=== PATIENT | female | born 1975 | race African-American/Black ===

== ENCOUNTER 2018-01-15 06:52 | Emergency (ER) | payer MEDICARE, MEDICAID ==
--- NOTE | 2018-01-15 07:01 | ER Document Report ---
ED General - General Chief Complaint: Shortness Of Breath Stated Complaint: DIFFICULTY BREATHING Time Seen by Provider: 01/15/18 07:01 TRAVEL OUTSIDE OF THE U.S. IN LAST 30 DAYS: No - HPI Patient complains to provider of: SOB, orthopnia Notes: Dialysis patient presents with increasing work of breathing shortness of breath and orthopnea. Patient states she is new to the area moved here from [facility]. Scheduled to get dialysis Friday and Friday. She was feeling "okay after her dialysis Friday night began to experience orthopnea. She is is gotten worse and worse. Patient is scheduled for dialysis today at 12:30 PM. Patient denies fever, chills, nausea, vomiting, diaphoresis. - Related Data Allergies/Adverse Reactions: acetaminophen Allergy (Verified 01/15/18 06:59) aspirin Allergy (Verified 01/15/18 06:59) clonidine Allergy (Verified 01/15/18 06:59) codeine Allergy (Verified 01/15/18 06:59) doxycycline Allergy (Verified 01/15/18 06:59) fentanyl Allergy (Verified 01/15/18 06:59) hydrocodone Allergy (Verified 01/15/18 06:59) iodine Allergy (Verified 01/15/18 06:59) lisinopril Allergy (Verified 01/15/18 06:59) oxycodone Allergy (Verified 01/15/18 06:59) peanut Allergy (Verified 01/15/18 06:59) vancomycin Allergy (Verified 01/15/18 06:59) paper tape Allergy (Uncoded 01/15/18 06:59) silk tape Allergy (Uncoded 01/15/18 06:59) Past Medical History - Social History Smoking Status: Unknown if Ever Smoked Family History: None Review of Systems - Review of Systems Notes: REVIEW OF SYSTEMS: CONSTITUTIONAL: -fevers, -chills EENT: -eye pain, -difficulty swallowing, -nasal congestion CARDIOVASCULAR: -chest pain, -syncope. RESPIRATORY: -cough, + SOB GASTROINTESTINAL: -abdominal pain, -nausea, -vomiting, -diarrhea GENITOURINARY: -dysuria, -hematuria MUSCULOSKELETAL: -back pain, -neck pain SKIN: -rash or skin lesions. HEMATOLOGIC: -easy bruising or bleeding. LYMPHATIC: -swollen, enlarged glands. NEUROLOGICAL: -altered mental status or loss of consciousness, -headache, - neurologic symptoms PSYCHIATRIC: -anxiety, -depression. ALL OTHER SYSTEMS REVIEWED AND NEGATIVE. Physical Exam - Vital signs Vitals: Resp Pulse Ox 23 H 95 01/15/18 07:00 01/15/18 07:00 - Notes Notes: PHYSICAL EXAMINATION: GENERAL: Well-appearing, well-nourished and in no acute distress. HEAD: Atraumatic, normocephalic. EYES: Pupils equal round and reactive to light, extraocular movements intact, sclera anicteric, conjunctiva are normal. ENT: nares patent, oropharynx clear without exudates. Moist mucous membranes. NECK: Normal range of motion, supple without lymphadenopathy LUNGS: Bilateral basilar crackles HEART: Regular rate and rhythm without murmurs ABDOMEN: Soft, nontender, normoactive bowel sounds. No guarding, no rebound. No masses appreciated. EXTREMITIES: Normal range of motion, no pitting or edema. No cyanosis. NEUROLOGICAL: Cranial nerves grossly intact. Normal speech, normal gait. Normal sensory and motor exams. PSYCH: Normal mood, normal affect. SKIN: Warm, Dry, normal turgor, no rashes or lesions noted. Course - Re-evaluation Re-evalutation: 01/15/18 07:09 Dialysis patient presents with orthopnea pain and fluid overload. Patient not requiring any supplemental oxygen, patient has baseline high blood pressure. She says her systolic is normally to 40, today she is around 190 systolic. Denies overt chest pain. 01/15/18 08:19 Patient's EKG is no ischemic changes, troponin negative, patient does have profoundly elevated proBNP. She states it is always like that. Patient has no fever, negative leukocytosis no focal infiltrate because of pulmonary edema. Patient is not requiring any supplemental oxygen at this time. Patient given IV analgesia at her request she suffers from chronic pain. Diffuse in nature. Patient be discharged to go directly to her dialysis appointment. Given strict return precautions - Vital Signs Vital signs: Temp Pulse Resp BP Pulse Ox 97.4 F 20 198/134 H 94 01/15/18 07:10 01/15/18 07:05 01/15/18 07:05 01/15/18 07:05 - Laboratory Result Diagrams: 01/15/18 07:00 01/15/18 07:00 Laboratory results interpreted by me: 01/15/18 01/15/18 01/15/18 07:00 07:00 07:00 RBC 3.54 L Hgb 11.0 L Hct 32.8 L RDW 17.7 H Plt Count 106 L Potassium 3.4 L BUN 34 H Creatinine 6.75 H Est GFR ( Amer) 8 L Est GFR (Non-Af Amer) 7 L Glucose 71 L Calcium 7.6 L NT-Pro-B Natriuret Pep 60331 H Discharge - Discharge Clinical Impression: Fluid overload Qualifiers: Hypervolemia type: unspecified Qualified Code(s): E87.70 - Fluid overload, unspecified Condition: Stable Instructions: Congestive Heart Failure ([facility]) Additional Instructions: Go directly to your dialysis appointment
[2018-01-15] MEDS ORDERED: IPRATROPIUM/ALBUTEROL 0.5-2.5 MG/3 ML AMPUL NEB ONE (07:07)
[2018-01-15 07:16] LABS: ABSOLUTE EOSINOPHILS # (AUTO) 0.3 10^3/uL (0.0-0.6); ABSOLUTE LYMPHOCYTES (AUTO) 1.2 10^3/uL (0.5-4.7); ABSOLUTE MONOCYTES (AUTO) 0.5 10^3/uL (0.1-1.4); ABSOLUTE NEUT (AUTO) 3.7 10^3/uL (1.7-8.2); BASOPHILS % (AUTO) 0.3 % (0-2); EOSINOPHILS % (AUTO) 5.6 % (0-6); HEMATOCRIT 32.8 % (36.0-47.0); LYMPHOCYTES % (AUTO) 20.6 % (13-45); MEAN CORPUSCULAR HEMOGLOBIN 30.9 pg (27.0-33.4); MEAN CORPUSCULAR HGB CONC 33.4 g/dL (32.0-36.0); MEAN CORPUSCULAR VOLUME 93 fl (80-97); MONOCYTES % (AUTO) 8.5 % (3-13); PLATELET COUNT 106 10^3/uL (150-450); RED BLOOD COUNT 3.54 10^6/uL (3.72-5.28); RED CELL DISTRIBUTION WIDTH 17.7 % (11.5-14.0); TOTAL CELLS COUNTED % (AUTO) 100 %; WHITE BLOOD COUNT 5.7 10^3/uL (4.0-10.5)
[2018-01-15 07:33] LABS: ALANINE AMINOTRANSFERASE 15 U/L (9-52); ALBUMIN 3.9 g/dL (3.5-5.0); ALKALINE PHOSPHATASE 49 U/L (38-126); ANION GAP 14 (5-19); ASPARTATE AMINO TRANSFERASE 15 U/L (14-36); BILIRUBIN,DIRECT 0.4 mg/dL (0.0-0.4); BILIRUBIN,TOTAL 0.5 mg/dL (0.2-1.3); BLOOD UREA NITROGEN 34 mg/dL (7-20); CALCIUM 7.6 mg/dL (8.4-10.2); CARBON DIOXIDE 25 mmol/L (22-30); CHLORIDE 103 mmol/L (98-107); GLUCOSE 71 mg/dL (75-110); POTASSIUM 3.4 mmol/L (3.6-5.0); SODIUM 141.6 mmol/L (137-145); TOTAL PROTEIN 6.5 g/dL (6.3-8.2)
[2018-01-15 07:46] LABS: TROPONIN I 0.032 ng/mL
[2018-01-15] MEDS ORDERED: MORPHINE SULFATE 10 MG/ML INJ IV ONE (08:18)
--- NOTE | 2018-01-15 08:35 | RADIOLOGY REPORT (SQ) ---
EXAM DESCRIPTION: CHEST SINGLE VIEW COMPLETED DATE/TIME: 01/15/2018 7:29 am REASON FOR STUDY: sob COMPARISON: None. EXAM PARAMETERS: NUMBER OF VIEWS: One view. TECHNIQUE: Single frontal radiographic view of the chest acquired. RADIATION DOSE: NA LIMITATIONS: None. FINDINGS: LUNGS AND PLEURA: No opacities, masses or pneumothorax. No pleural effusion. MEDIASTINUM AND HILAR STRUCTURES: No masses. Contour normal. HEART AND VASCULAR STRUCTURES: Cardiomegaly. Normal vasculature. BONES: No acute findings. HARDWARE: None in the chest. OTHER: No other significant finding. IMPRESSION: 1 Cardiomegaly. No evidence for failure. Correlation suggested. 2 No acute pulmonary findings. TECHNICAL DOCUMENTATION: JOB ID: [id number] [employer]- All Rights Reserved Reading location - IP/workstation name: [email or web address]
[2018-01-15 08:43] VITALS: BP 209/136
--- NOTE | 2018-01-15 20:39 | EKG REPORT ---
SEVERITY:- ABNORMAL ECG - SINUS RHYTHM VENTRICULAR PREMATURE COMPLEX PROBABLE LEFT ATRIAL ABNORMALITY LVH WITH IVCD AND SECONDARY REPOL ABNRM : Confirmed by: Lise Pitts MD 15-Jan-2018 20:38:24
== END 2018-01-15 08:53 | disposition home or self-care (01) ==
LOC: ER 06:52
DX: E87.70 Fluid overload, unspecified (principal); R06.01 Orthopnea; R06.02 Shortness of breath; Z88.6 Allergy status to analgesic agent; Z88.3 Allergy status to other anti-infective agents; Z99.2 Dependence on renal dialysis
CPT/HCPCS: 93005; 94640; 99285; 96374; 36415; 85025; 80076; 80048; 84484; 83880; 71045; 93010; J2270; A9270; J7620

== ENCOUNTER 2018-01-20 21:02 | Emergency (ER) | payer MEDICARE, MEDICAID ==
[2018-01-20] MEDS ORDERED: DIPHENHYDRAMINE HCL 50 MG/ML VIAL IV ONE (22:12)
[2018-01-20] MEDS ORDERED: METOCLOPRAMIDE HCL 10 MG TABLET PO ONE (22:12)
--- NOTE | 2018-01-20 22:30 | ER Document Report ---
ED General - General Chief Complaint: Allergic Reaction Stated Complaint: VOMITING, DIARRHEA Time Seen by Provider: 01/20/18 22:00 Mode of Arrival: Ambulatory Information source: Patient Notes: 43-year-old female dialysis patient who had dialysis partially today presents with complaints of nausea vomiting diarrhea. pt ntes that she has had sob when laying flat. pt notes frothy sputum. Pt also states she was given lisinopril but remembers having a hx of allergic reaction to it and is now itching . TRAVEL OUTSIDE OF THE U.S. IN LAST 30 DAYS: No - HPI Onset: Last week Onset/Duration: Waxing and waning Quality of pain: Cramping Severity: Mild Pain Level: 1 Associated symptoms: Diarrhea, Nausea, Vomiting, Shortness of breath Exacerbated by: Supine Relieved by: Denies Similar symptoms previously: Yes Recently seen / treated by doctor: Yes - Related Data Allergies/Adverse Reactions: acetaminophen Allergy (Verified 01/15/18 06:59) aspirin Allergy (Verified 01/15/18 06:59) clonidine Allergy (Verified 01/15/18 06:59) codeine Allergy (Verified 01/15/18 06:59) doxycycline Allergy (Verified 01/15/18 06:59) fentanyl Allergy (Verified 01/15/18 06:59) hydrocodone Allergy (Verified 01/15/18 06:59) iodine Allergy (Verified 01/15/18 06:59) lisinopril Allergy (Verified 01/15/18 06:59) oxycodone Allergy (Verified 01/15/18 06:59) peanut Allergy (Verified 01/15/18 06:59) vancomycin Allergy (Verified 01/15/18 06:59) paper tape Allergy (Uncoded 01/15/18 06:59) silk tape Allergy (Uncoded 01/15/18 06:59) Past Medical History - Social History Smoking Status: Never Smoker Cigarette use (# per day): No Chew tobacco use (# tins/day): No Smoking Education Provided: No Family History: None - Past Medical History Cardiac Medical History: Reports: Hx Congestive Heart Failure, Hx Hypertension Renal/ Medical History: Denies: Hx Peritoneal Dialysis Review of Systems - Review of Systems Notes: REVIEW OF SYSTEMS: CONSTITUTIONAL : Denies fever, chills, or sweats. Denies recent illness. EENT: Denies eye, ear, throat, or mouth pain or symptoms. Denies nasal or sinus congestion or discharge. Denies throat, tongue, or mouth swelling or difficulty swallowing. CARDIOVASCULAR: Denies chest pain. Denies palpitations or racing or irregular heart beat. Denies ankle edema. RESPIRATORY: Admits shortness of breath GASTROINTESTINAL: Admits nausea vomiting diarrhea GENITOURINARY: Denies difficulty urinating, painful urination, burning, frequency, blood in urine, or discharge. FEMALE GENITOURINARY: Denies vaginal bleeding, heavy or abnormal periods, irregular periods. Denies vaginal discharge or odor. MUSCULOSKELETAL: Denies back or neck pain or stiffness. Denies joint pain or swelling. SKIN: Denies rash, lesions or sores. HEMATOLOGIC : Denies easy bruising or bleeding. LYMPHATIC: Denies swollen, enlarged glands. NEUROLOGICAL: Denies confusion or altered mental status. Denies passing out or loss of consciousness. Denies dizziness or lightheadedness. Denies headache. Denies weakness or paralysis or loss of use of either side. Denies problems with gait or speech. Denies sensory loss, numbness, or tingling. Denies seizures. PSYCHIATRIC: Denies anxiety or stress. Denies depression, suicidal ideation, or homicidal ideation. ALL OTHER SYSTEMS REVIEWED AND NEGATIVE. PHYSICAL EXAMINATION: GENERAL: Well-appearing, well-nourished and in no acute distress. HEAD: Atraumatic, normocephalic. EYES: Pupils equal round and reactive to light, extraocular movements intact, conjunctiva are normal. ENT: Nares patent, oropharynx clear without exudates. Moist mucous membranes. NECK: Normal range of motion, supple without lymphadenopathy LUNGS: Breath sounds clear to auscultation bilaterally and equal. No wheezes rales or rhonchi. HEART: Regular rate and rhythm without murmurs ABDOMEN: Soft, nontender, nondistended abdomen. No guarding, no rebound. No masses appreciated. Female : deferred Musculoskeletal: Normal range of motion, no pitting or edema. No cyanosis. NEUROLOGICAL: Cranial nerves grossly intact. Normal speech, normal gait. Normal sensory, motor exams PSYCH: Normal mood, normal affect. SKIN: Dialysis access noted Dictation was performed using [employer] voice recognition software Physical Exam - Vital signs Vitals: Temp Pulse Resp BP Pulse Ox 97.5 F 87 16 184/119 H 95 01/20/18 22:07 01/20/18 22:07 01/20/18 22:07 01/20/18 22:07 01/20/18 22:07 Course - Re-evaluation Re-evalutation: 01/20/18 22:31 Patient is in no distress, she is hypertensive however notes it is better than this morning. I will give her Benadryl for her itching however she is not having any respiratory distress laying flat, x-ray pending lab work pending patient does produce urine but is not on any diuretics 01/20/18 23:47 Patient has been noted to be on her phone throughout the whole visit in no respiratory distress she looks well overall chest x-ray noted no significant fluid overload she has had no respiratory distress she has not been short of breath when speaking to me she has no signs of a pulmonary emboli she is not tachycardic she is not tachypneic Patient instructed to stop taking lisinopril After performing a Medical Screening Examination, I estimate there is LOW risk for ACUTE CORONARY SYNDROME, PULMONARY EMBOLI, RESPIRATORY FAILURE, SEPSIS OR MENINGITIS, thus I consider the discharge disposition reasonable. I have reevaluated this patient multiple times and no significant life threatening changes are noted. The patient and I have discussed the diagnosis and risks, and we agree with discharging home with close follow-up. We also discussed returning to the Emergency Department immediately if new or worsening symptoms occur. We have discussed the symptoms which are most concerning (e.g., changing or worsening pain, trouble swallowing or breathing, neck stiffness, fever) that necessitate immediate return. - Vital Signs Vital signs: Temp Pulse Resp BP Pulse Ox 97.5 F 87 16 184/119 H 95 01/20/18 22:07 01/20/18 22:07 01/20/18 22:07 01/20/18 22:07 01/20/18 22:07 - Laboratory Result Diagrams: 01/20/18 22:54 01/20/18 22:54 Laboratory results interpreted by me: 01/20/18 01/20/18 22:54 22:54 Hgb 11.6 L Hct 35.2 L RDW 17.5 H Plt Count 128 L Creatinine 4.63 H Est GFR ( Amer) 12 L Est GFR (Non-Af Amer) 10 L Calcium 8.3 L Discharge - Discharge Clinical Impression: Congestive heart failure Qualifiers: Heart failure type: unspecified Heart failure chronicity: chronic Qualified Code(s): I50.9 - Heart failure, unspecified Condition: Stable Disposition: HOME, SELF-CARE Instructions: Acute Allergic Reaction ([facility]) Additional Instructions: Follow up with your physician tomorrow for further care or return to the ED IMMEDIATELY if symptoms worsen or new concerns occur. If you cannot afford to follow up with your primary care physician a list of low cost clinics have been provided at the end of your discharge papers as well.
--- NOTE | 2018-01-20 22:41 | RADIOLOGY REPORT (SQ) ---
EXAM DESCRIPTION: CHEST 2 VIEWS COMPLETED DATE/TIME: 01/20/2018 10:22 pm REASON FOR STUDY: sob, dialysis patient COMPARISON: 01/15/2018. NUMBER OF VIEWS: Two view. TECHNIQUE: Frontal and lateral radiographic views of the chest acquired. LIMITATIONS: None. FINDINGS: LUNGS AND PLEURA: No opacities, masses or pneumothorax. No pleural effusion. MEDIASTINUM AND HILAR STRUCTURES: No masses. No contour abnormalities. HEART AND VASCULAR STRUCTURES: Heart enlarged without failure. Aorta normal for age. BONES: No acute findings. HARDWARE: None in the chest. OTHER: No other significant finding. IMPRESSION: CARDIAC ENLARGEMENT WITHOUT FAILURE. TECHNICAL DOCUMENTATION: JOB ID: [id number] [employer]- All Rights Reserved Reading location - IP/workstation name: [email or web address]
[2018-01-20 23:02] LABS: ABSOLUTE BASOPHILS # (AUTO) 0.1 10^3/uL (0.0-0.2); ABSOLUTE EOSINOPHILS # (AUTO) 0.2 10^3/uL (0.0-0.6); ABSOLUTE LYMPHOCYTES (AUTO) 1.3 10^3/uL (0.5-4.7); ABSOLUTE MONOCYTES (AUTO) 0.5 10^3/uL (0.1-1.4); BASOPHILS % (AUTO) 1.6 % (0-2); EOSINOPHILS % (AUTO) 3.2 % (0-6); HEMATOCRIT 35.2 % (36.0-47.0); HEMOGLOBIN 11.6 g/dL (12.0-15.5); LYMPHOCYTES % (AUTO) 26.3 % (13-45); MEAN CORPUSCULAR HEMOGLOBIN 30.6 pg (27.0-33.4); MEAN CORPUSCULAR VOLUME 93 fl (80-97); MONOCYTES % (AUTO) 9.5 % (3-13); PLATELET COUNT 128 10^3/uL (150-450); RED CELL DISTRIBUTION WIDTH 17.5 % (11.5-14.0); SEGMENTED NEUTROPHILS % (AUTO) 59.4 % (42-78); TOTAL CELLS COUNTED % (AUTO) 100 %
[2018-01-20 23:15] LABS: ALANINE AMINOTRANSFERASE 14 U/L (9-52); ALBUMIN 4.3 g/dL (3.5-5.0); ALKALINE PHOSPHATASE 66 U/L (38-126); ANION GAP 11 (5-19); ASPARTATE AMINO TRANSFERASE 24 U/L (14-36); BILIRUBIN,DIRECT 0.4 mg/dL (0.0-0.4); BILIRUBIN,TOTAL 0.6 mg/dL (0.2-1.3); BLOOD UREA NITROGEN 18 mg/dL (7-20); CALCIUM 8.3 mg/dL (8.4-10.2); CARBON DIOXIDE 27 mmol/L (22-30); CHLORIDE 101 mmol/L (98-107); GLUCOSE 77 mg/dL (75-110); POTASSIUM 4.1 mmol/L (3.6-5.0); SODIUM 139.4 mmol/L (137-145)
[2018-01-21 00:02] VITALS: BP 198/113
== END 2018-01-21 00:01 | disposition home or self-care (01) ==
LOC: ER 21:02
DX: I50.9 Heart failure, unspecified (principal); R11.2 Nausea with vomiting, unspecified; R19.7 Diarrhea, unspecified; I11.0 Hypertensive heart disease with heart failure; Z88.6 Allergy status to analgesic agent; Z91.010 Allergy to peanuts
CPT/HCPCS: 99283; 96374; 36415; 85025; 80053; 83880; 71046; J1200; A9270

== ENCOUNTER 2018-01-22 20:41 | Emergency (ER) | payer MEDICARE, MEDICAID ==
[2018-01-22] MEDS ORDERED: ASPIRIN 81 MG TABLET, CHEWABLE PO ONE (21:03)
[2018-01-22 21:19] VITALS: BP 171/100
[2018-01-22] MEDS ORDERED: IPRATROPIUM/ALBUTEROL 0.5-2.5 MG/3 ML AMPUL NEB ONE (22:02)
[2018-01-22] MEDS ORDERED: HYDROCODONE/ACETAMINOPHEN 5-325 MG TABLET PO ONE (22:05)
[2018-01-22 22:09] LABS: ALANINE AMINOTRANSFERASE 20 U/L (9-52); ALBUMIN 4.2 g/dL (3.5-5.0); ALKALINE PHOSPHATASE 54 U/L (38-126); ANION GAP 15 (5-19); ASPARTATE AMINO TRANSFERASE 13 U/L (14-36); BILIRUBIN,DIRECT 0.4 mg/dL (0.0-0.4); BILIRUBIN,TOTAL 0.5 mg/dL (0.2-1.3); BLOOD UREA NITROGEN 21 mg/dL (7-20); CALCIUM 8.4 mg/dL (8.4-10.2); CARBON DIOXIDE 26 mmol/L (22-30); CHLORIDE 102 mmol/L (98-107); CREATINE KINASE 76 U/L (30-135); GLUCOSE 69 mg/dL (75-110); POTASSIUM 3.8 mmol/L (3.6-5.0); SODIUM 143.1 mmol/L (137-145); TOTAL PROTEIN 6.6 g/dL (6.3-8.2)
[2018-01-22 22:10] LABS: HEMOGLOBIN 11.2 g/dL (12.0-15.5); MEAN CORPUSCULAR HEMOGLOBIN 30.4 pg (27.0-33.4); MEAN CORPUSCULAR HGB CONC 32.9 g/dL (32.0-36.0); MEAN CORPUSCULAR VOLUME 92 fl (80-97); PLATELET COUNT 143 10^3/uL (150-450); RED BLOOD COUNT 3.68 10^6/uL (3.72-5.28); RED CELL DISTRIBUTION WIDTH 17.9 % (11.5-14.0); WHITE BLOOD COUNT 4.9 10^3/uL (4.0-10.5)
[2018-01-22 22:21] LABS: CREATINE KINASE MB 0.95 ng/mL (<4.55); TROPONIN I 0.026 ng/mL
--- NOTE | 2018-01-22 22:23 | RADIOLOGY REPORT (SQ) ---
EXAM DESCRIPTION: CHEST SINGLE VIEW COMPLETED DATE/TIME: 01/22/2018 10:06 pm REASON FOR STUDY: cp COMPARISON: None. NUMBER OF VIEWS: One view. TECHNIQUE: Single frontal radiographic view of the chest acquired. LIMITATIONS: None. FINDINGS: LUNGS AND PLEURA: No acute opacities, masses or pneumothorax. No pleural effusion. MEDIASTINUM AND HILAR STRUCTURES: No masses. Contour normal. HEART AND VASCULAR STRUCTURES: Heart enlarged without failure. Normal vasculature. BONES: No acute findings. HARDWARE: None in the chest. OTHER: No other significant finding. IMPRESSION: No acute findings. Similar cardiomegaly. TECHNICAL DOCUMENTATION: JOB ID: [id number] 2010 [employer]- All Rights Reserved Reading location - IP/workstation name: [email or web address]
--- NOTE | 2018-01-22 22:24 | ER Document Report ---
ED General - General Chief Complaint: Chest Pain Stated Complaint: CHEST PAIN Time Seen by Provider: 01/22/18 21:50 TRAVEL OUTSIDE OF THE U.S. IN LAST 30 DAYS: No - HPI Notes: 43-year-old female with end-stage renal failure on dialysis presents with multiple complaints. She states that she is visiting from [place] this week. She was given permission by her doctor so that she may see her newly born grandchild. She reports being hospitalized on last month, so was not able to come to [place]. Her vascular surgeon gave her "permission to come" because he was going on vacation. She reports having multiple prior dialysis access sites. She had a new fistula placed in her left arm in August. She has been having frequent pain during dialysis at the access site. She states the needles "infiltrates" and causes her severe pain in her arm. She states this then causes her anxiety and "pain all over." She states it triggers her "sickle cell." She then states she cannot lie flat and feels like she is smothering. She states this has happened during every episode of dialysis this week and has had to stop dialysis about an hour early. She states that her fistula was last evaluated in November and was told it was functioning normally. When questioned further about when she is to follow-up with her doctors, she states "they are all [place], but not kin, and all having problems getting back into the country. They have been gone for 3 months." She states this applies to both her vascular surgeon and airborne sensor specialist in [place]. When asked if there is a physician covering for her doctors, she states "no they are not allowed to give any orders until he arrives home from [facility]". She states she is not scheduled to go home until March. She has another physician in [facility] [place] where her son lives. She does not have an appointment until next month. She reports increased anxiety from PTSD and pain all over and is requesting pain medication. She has shortness of breath with wheezing and dry cough. She also reports chest pain and heaviness. Denies fevers. Last dialysis this morning. Of note, this is her third visit to the emergency department this week. - Related Data Allergies/Adverse Reactions: acetaminophen Allergy (Verified 01/15/18 06:59) aspirin Allergy (Verified 01/15/18 06:59) clonidine Allergy (Verified 01/15/18 06:59) codeine Allergy (Verified 01/15/18 06:59) doxycycline Allergy (Verified 01/15/18 06:59) fentanyl Allergy (Verified 01/15/18 06:59) hydrocodone Allergy (Verified 01/15/18 06:59) iodine Allergy (Verified 01/15/18 06:59) lisinopril Allergy (Verified 01/15/18 06:59) oxycodone Allergy (Verified 01/15/18 06:59) peanut Allergy (Verified 01/15/18 06:59) vancomycin Allergy (Verified 01/15/18 06:59) paper tape Allergy (Uncoded 01/15/18 06:59) silk tape Allergy (Uncoded 01/15/18 06:59) Past Medical History - Social History Smoking Status: Current Every Day Smoker Chew tobacco use (# tins/day): No Frequency of alcohol use: None Drug Abuse: None Family History: None Patient has suicidal ideation: No Patient has homicidal ideation: No - Past Medical History Cardiac Medical History: Reports: Hx Congestive Heart Failure, Hx Hypertension Pulmonary Medical History: Reports: Hx Asthma, Hx Bronchitis Renal/ Medical History: Reports: Hx End Stage Renal Disease - Dialysis Tues, Thurs, Sat. Denies: Hx Peritoneal Dialysis Past Surgical History: Reports: Hx Abdominal Surgery - hernia repair, Hx Bowel Surgery - bowel resection, Hx Section, Hx Kidney (Renal Surgery) - kidney biopsy, Hx Vascular Surgery - fistula replaced x4 Review of Systems - Review of Systems Notes: REVIEW OF SYSTEMS: CONSTITUTIONAL: -fevers, -chills EENT: -eye pain, -difficulty swallowing, -nasal congestion CARDIOVASCULAR: +chest pain, -syncope. RESPIRATORY: +cough, +SOB GASTROINTESTINAL: -abdominal pain, -nausea, -vomiting, -diarrhea GENITOURINARY: -dysuria, -hematuria MUSCULOSKELETAL: +back pain, -neck pain, +left arm pain at fistula SKIN: -rash or skin lesions. HEMATOLOGIC: -easy bruising or bleeding. LYMPHATIC: -swollen, enlarged glands. NEUROLOGICAL: -altered mental status or loss of consciousness, -headache, - neurologic symptoms PSYCHIATRIC: +anxiety, -depression. Physical Exam - Vital signs Vitals: Temp Pulse Resp BP Pulse Ox 98.5 F 116 H 24 H 171/100 H 99 01/22/18 21:03 01/22/18 21:03 01/22/18 21:03 01/22/18 21:03 01/22/18 21:03 Interpretation: Hypertensive, Tachycardic - Notes Notes: PHYSICAL EXAMINATION: GENERAL: Well-appearing, well-nourished and in no acute distress. HEAD: Atraumatic, normocephalic. EYES: Pupils equal round and reactive to light, extraocular movements intact, conjunctiva are normal. ENT: nares patent, oropharynx clear without exudates. Moist mucous membranes. NECK: Normal range of motion, supple without lymphadenopathy LUNGS: Diffuse wheezing, mild rhonchi. No tachypnea. HEART: Regular rhythm, tachycardic. No chest wall tenderness ABDOMEN: Soft, nontender, normoactive bowel sounds. No guarding, no rebound. No masses appreciated. EXTREMITIES: Normal range of motion, no pitting or edema. No cyanosis. Fistula left arm with strong palpable thrill and distal pulses. no color change or sign of ischemia. no tenderness. NEUROLOGICAL: Cranial nerves grossly intact. Normal speech, normal gait. Normal sensory and motor exams. PSYCH: Normal mood, normal affect. SKIN: Warm, Dry, normal turgor, no rashes or lesions noted. Course - Re-evaluation Re-evalutation: 01/22/18 22:30 Few PVCs on EKG. Diffuse T-wave inversions inferolateral leads unchanged from prior. Neb and pain medication ordered. Patient's history is suspect. Will obtain labs and chest x-ray. 01/22/18 23:16 Chest x-ray unchanged from previous. Creatinine at baseline. Normal potassium. Advise follow-up with primary care physician. No signs of fluid overload. Suspect opioid seeking behavior. 01/22/18 23:18 Glucose always low. We will feed prior to discharge - Vital Signs Vital signs: Temp Pulse Resp BP Pulse Ox 98.5 F 116 H 24 H 171/100 H 99 01/22/18 21:03 01/22/18 21:03 01/22/18 21:03 01/22/18 21:03 01/22/18 21:03 - Laboratory Result Diagrams: 01/22/18 21:40 01/22/18 21:40 Laboratory results interpreted by me: 01/22/18 01/22/18 21:40 21:40 RBC 3.68 L Hgb 11.2 L Hct 34.0 L RDW 17.9 H Plt Count 143 L Eosinophils % (Manual) 12 H BUN 21 H Creatinine 5.11 H Est GFR ( Amer) 11 L Est GFR (Non-Af Amer) 9 L Glucose 69 L AST 13 L Discharge - Discharge Clinical Impression: Acute bronchospasm Chronic pain Qualifiers: Chronic pain type: other chronic pain Qualified Code(s): G89.29 - Other chronic pain Condition: Good Disposition: HOME, SELF-CARE Instructions: Bronchospasm ([facility]) Additional Instructions: You must follow-up with your airborne sensor specialist and vascular surgeon for further evaluation of symptoms. You must follow-up with a primary care physician for further pain control. Use inhaler as needed for shortness of breath and wheezing. Return for worsening or concerning symptoms. Prescriptions: Albuterol Sulfate [Proair HFA Inhalation Aerosol 8.5 gm MDI] 2 puff IH Q4H PRN # 1 mdi PRN Reason: Forms: Elevated Blood Pressure
[2018-01-22 22:38] LABS: ABSOLUTE LYMPHOCYTES# (MANUAL) 1.2 10^3/uL (0.5-4.7); ABSOLUTE MONOCYTES # (MANUAL) 0.4 10^3/uL (0.1-1.4); ABSOLUTE NEUTROPHILS# (MANUAL) 2.7 10^3/uL (1.7-8.2); BASOPHILS % (MANUAL) 0 % (0-2); EOSINOPHILS % (MANUAL) 12 % (0-6); LYMPHOCYTES % (MANUAL) 24 % (13-45); MONOCYTES % (MANUAL) 8 % (3-13); SEGMENTED NEUTROPHILS % (MAN) 56 % (42-78); TOTAL CELLS COUNTED 100
[2018-01-22 22:39] LABS: ANISOCYTOSIS 1+; PLATELET COMMENT DECREASED; POLYCHROMASIA SLIGHT
[2018-01-22 22:40] LABS: OVALOCYTES 1+; POIKILOCYTOSIS 1+; TARGET CELLS SLIGHT
--- NOTE | 2018-01-22 23:01 | EKG REPORT ---
SEVERITY:- ABNORMAL ECG - SINUS RHYTHM VENTRICULAR TRIGEMINY PROBABLE LEFT ATRIAL ABNORMALITY LVH WITH SECONDARY REPOLARIZATION ABNORMALITY PROLONGED QT INTERVAL : Confirmed by: Maribeth Sarmiento 22-Jan-2018 23:00:22
[2018-01-22] MEDS ORDERED: DIPHENHYDRAMINE HCL 25 MG CAPSULE PO ONE (23:12)
== END 2018-01-22 23:50 | disposition home or self-care (01) ==
LOC: ER 20:41
DX: J45.909 Unspecified asthma, uncomplicated (principal); G89.29 Other chronic pain; M79.602 Pain in left arm; R07.9 Chest pain, unspecified; M54.9 Dorsalgia, unspecified; F17.200 Nicotine dependence, unspecified, uncomplicated; R06.02 Shortness of breath; R05 Cough; I49.3 Ventricular premature depolarization; I12.0 Hypertensive chronic kidney disease with stage 5 chronic kidney disease or end stage renal disease; N18.6 End stage renal disease; Z99.2 Dependence on renal dialysis; F43.10 Post-traumatic stress disorder, unspecified; F41.9 Anxiety disorder, unspecified; D57.1 Sickle-cell disease without crisis; Z88.6 Allergy status to analgesic agent; Z88.8 Allergy status to other drugs, medicaments and biological substances; Z88.5 Allergy status to narcotic agent; Z88.1 Allergy status to other antibiotic agents; Z91.010 Allergy to peanuts; Z91.048 Other nonmedicinal substance allergy status
CPT/HCPCS: 93005; 99285; 36415; 82553; 82550; 85025; 80053; 84484; 71045; 93010; A9270 ×2

== ENCOUNTER 2018-01-29 16:18 | Emergency (ER) | payer MEDICARE, MEDICAID ==
--- NOTE | 2018-01-29 16:59 | ER Document Report ---
ED Medical Screen (RME) - General Chief Complaint: Anxiety Stated Complaint: PAIN ALL OVER Time Seen by Provider: 01/29/18 16:55 Mode of Arrival: Ambulatory Information source: Patient Notes: 43 years old female on hemodialysis, presents with multiple complaints. Did not go to for dialysis today. Complaint of nausea vomiting abdominal pain and loose stools for the last 2 days , last 3-4 days cough wheezing and difficulty breathing. Could not take blood pressure medicine this morning, because she vomited it out. Denies any fever chills or other constitutional symptoms. Has a history of PE TRAVEL OUTSIDE OF THE [place] IN LAST 30 DAYS: No - Related Data Allergies/Adverse Reactions: acetaminophen Allergy (Verified 01/15/18 06:59) aspirin Allergy (Verified 01/15/18 06:59) clonidine Allergy (Verified 01/15/18 06:59) codeine Allergy (Verified 01/15/18 06:59) doxycycline Allergy (Verified 01/15/18 06:59) fentanyl Allergy (Verified 01/15/18 06:59) hydrocodone Allergy (Verified 01/15/18 06:59) iodine Allergy (Verified 01/15/18 06:59) lisinopril Allergy (Verified 01/15/18 06:59) oxycodone Allergy (Verified 01/15/18 06:59) peanut Allergy (Verified 01/15/18 06:59) vancomycin Allergy (Verified 01/15/18 06:59) paper tape Allergy (Uncoded 01/15/18 06:59) silk tape Allergy (Uncoded 01/15/18 06:59) Past Medical History - Past Medical History Cardiac Medical History: Reports: Hx Congestive Heart Failure, Hx Hypertension Pulmonary Medical History: Reports: Hx Asthma, Hx Bronchitis Renal/ Medical History: Reports: Hx End Stage Renal Disease - Dialysis Tues, Th, Sat. Denies: Hx Peritoneal Dialysis Past Surgical History: Reports: Hx Abdominal Surgery - hernia repair, Hx Bowel Surgery - bowel resection, Hx Section, Hx Kidney (Renal Surgery) - kidney biopsy, Hx Vascular Surgery - fistula replaced x4 Physical Exam - Vital signs Vitals: Temp Pulse Resp BP Pulse Ox 99.2 F 108 H 17 211/124 H 100 01/29/18 16:39 01/29/18 16:39 01/29/18 16:39 01/29/18 16:39 01/29/18 16:39 Course - Vital Signs Vital signs: Temp Pulse Resp BP Pulse Ox 99.2 F 108 H 17 211/124 H 100 01/29/18 16:39 01/29/18 16:39 01/29/18 16:39 01/29/18 16:39 01/29/18 16:39 Doctor's Discharge - Discharge Instructions: Anxiety ([facility])
--- NOTE | 2018-01-29 17:17 | RADIOLOGY REPORT (SQ) ---
EXAM DESCRIPTION: CHEST SINGLE VIEW COMPLETED DATE/TIME: 01/29/2018 5:08 pm REASON FOR STUDY: sob COMPARISON: 01/20/2018 NUMBER OF VIEWS: One view. TECHNIQUE: Single frontal radiographic view of the chest acquired. LIMITATIONS: None. FINDINGS: LUNGS AND PLEURA: No opacities, masses or pneumothorax. No pleural effusion. MEDIASTINUM AND HILAR STRUCTURES: No masses. Contour normal. HEART AND VASCULAR STRUCTURES: Heart enlarged without failure. Normal vasculature. BONES: No acute findings. HARDWARE: None in the chest. OTHER: No other significant finding. IMPRESSION: HEART ENLARGED WITHOUT FAILURE. NO OTHER SIGNIFICANT RADIOGRAPHIC FINDING IN THE CHEST. TECHNICAL DOCUMENTATION: JOB ID: [id number] [employer]- All Rights Reserved Reading location - IP/workstation name: [email or web address]
[2018-01-29] MEDS ORDERED: HYDRALAZINE HCL INJ/PF 20 MG/1 ML SDV IV ONE (17:57)
[2018-01-29] MEDS ORDERED: MORPHINE SULFATE 10 MG/ML INJ IV ONE (17:58)
[2018-01-29 18:15] LABS: ABSOLUTE BASOPHILS # (AUTO) 0.1 10^3/uL (0.0-0.2); ABSOLUTE EOSINOPHILS # (AUTO) 0.3 10^3/uL (0.0-0.6); ABSOLUTE LYMPHOCYTES (AUTO) 1.4 10^3/uL (0.5-4.7); ABSOLUTE MONOCYTES (AUTO) 0.5 10^3/uL (0.1-1.4); ABSOLUTE NEUT (AUTO) 3.8 10^3/uL (1.7-8.2); BASOPHILS % (AUTO) 0.8 % (0-2); EOSINOPHILS % (AUTO) 5.7 % (0-6); HEMATOCRIT 37.3 % (36.0-47.0); HEMOGLOBIN 12.5 g/dL (12.0-15.5); LYMPHOCYTES % (AUTO) 22.4 % (13-45); MEAN CORPUSCULAR HGB CONC 33.5 g/dL (32.0-36.0); MEAN CORPUSCULAR VOLUME 93 fl (80-97); MONOCYTES % (AUTO) 8.6 % (3-13); PLATELET COUNT 129 10^3/uL (150-450); RED BLOOD COUNT 4.04 10^6/uL (3.72-5.28); RED CELL DISTRIBUTION WIDTH 17.9 % (11.5-14.0); SEGMENTED NEUTROPHILS % (AUTO) 62.5 % (42-78); TOTAL CELLS COUNTED % (AUTO) 100 %
--- NOTE | 2018-01-29 18:21 | ER Document Report ---
ED General - General Chief Complaint: Anxiety Stated Complaint: PAIN ALL OVER Time Seen by Provider: 01/29/18 16:55 Mode of Arrival: Ambulatory Notes: The patient is a 43-year-old female, past medical history ESRD, anxiety, hypertension, presents with multiple complaints. She is complaining of some increased anxiety since she ran out of her Klonopin she was prescribed from a doctor [place]. She recently moved to [place] to help with her granddaughter. Patient missed dialysis earlier today because she is having nausea and anxiety about going on dialysis. Patient vomited her 25 mg Coreg and 50 mg hydralazine this morning. She did not take her evening doses yet. She is also complaining of some pruritus diffusely. Patient mentioned that sometimes her right upper chest wall hurts, but has not had any pain in several days. She denies fevers, increased shortness of breath, abdominal pain, blood in her stool, current chest pain or hemoptysis. TRAVEL OUTSIDE OF THE [place] IN LAST 30 DAYS: No - Related Data Allergies/Adverse Reactions: acetaminophen Allergy (Verified 01/15/18 06:59) aspirin Allergy (Verified 01/15/18 06:59) clonidine Allergy (Verified 01/15/18 06:59) codeine Allergy (Verified 01/15/18 06:59) doxycycline Allergy (Verified 01/15/18 06:59) fentanyl Allergy (Verified 01/15/18 06:59) hydrocodone Allergy (Verified 01/15/18 06:59) iodine Allergy (Verified 01/15/18 06:59) lisinopril Allergy (Verified 01/15/18 06:59) oxycodone Allergy (Verified 01/15/18 06:59) peanut Allergy (Verified 01/15/18 06:59) vancomycin Allergy (Verified 01/15/18 06:59) paper tape Allergy (Uncoded 01/15/18 06:59) silk tape Allergy (Uncoded 01/15/18 06:59) Past Medical History - General Information source: Patient - Social History Smoking Status: Current Every Day Smoker Chew tobacco use (# tins/day): No Frequency of alcohol use: None Drug Abuse: None Family History: None Patient has suicidal ideation: No Patient has homicidal ideation: No - Past Medical History Cardiac Medical History: Reports: Hx Congestive Heart Failure, Hx Hypertension Pulmonary Medical History: Reports: Hx Asthma, Hx Bronchitis Renal/ Medical History: Reports: Hx End Stage Renal Disease - Dialysis Tues, Thurs, Sat. Denies: Hx Peritoneal Dialysis Past Surgical History: Reports: Hx Abdominal Surgery - hernia repair, Hx Bowel Surgery - bowel resection, Hx Section, Hx Kidney (Renal Surgery) - kidney biopsy, Hx Vascular Surgery - fistula replaced x4 Review of Systems - Review of Systems Notes: REVIEW OF SYSTEMS: CONSTITUTIONAL: -fevers, -chills EENT: -eye pain, -difficulty swallowing, -nasal congestion CARDIOVASCULAR: -chest pain, -syncope. RESPIRATORY: -cough, -SOB GASTROINTESTINAL: -abdominal pain, +nausea, +vomiting, -diarrhea GENITOURINARY: -dysuria, -hematuria MUSCULOSKELETAL: -back pain, -neck pain SKIN: +pruritic rash HEMATOLOGIC: -easy bruising or bleeding. LYMPHATIC: -swollen, enlarged glands. NEUROLOGICAL: -altered mental status or loss of consciousness, -headache, - neurologic symptoms PSYCHIATRIC: +anxiety, -depression. ALL OTHER SYSTEMS REVIEWED AND NEGATIVE. Physical Exam - Vital signs Vitals: Temp Pulse Resp BP Pulse Ox 99.2 F 108 H 17 211/124 H 100 01/29/18 16:39 01/29/18 16:39 01/29/18 16:39 01/29/18 16:39 01/29/18 16:39 - Notes Notes: PHYSICAL EXAMINATION: GENERAL: Well-appearing, well-nourished and in no acute distress. On phone during interview. HEAD: Atraumatic, normocephalic. EYES: Pupils equal round and reactive to light, extraocular movements intact, sclera anicteric, conjunctiva are normal. ENT: nares patent, oropharynx clear without exudates. Moist mucous membranes. NECK: Normal range of motion, supple without lymphadenopathy LUNGS: Breath sounds clear to auscultation bilaterally and equal. No wheezes rales or rhonchi. HEART: Mild tachycardia, regular rhythm. ABDOMEN: Soft, nontender, normoactive bowel sounds. No guarding, no rebound. No masses appreciated. EXTREMITIES: Normal range of motion, no pitting or edema. No cyanosis. NEUROLOGICAL: Cranial nerves grossly intact. Normal speech, normal gait. Normal sensory and motor exams. PSYCH: Normal mood, normal affect. SKIN: Warm, Dry, normal turgor, no rashes or lesions noted. Course - Re-evaluation Re-evalutation: Patient presents with multiple complaints. She was provided her dose of antihypertensives. 2 sets of troponins are the same and EKG does not show a STEMI. Not having any chest pain at this time. Chest x-ray does not show any evidence of pulmonary edema and she is not in any respiratory distress. She has no need for emergent dialysis at this time and she can go to dialysis in the morning. This will also help with her blood pressure. Patient provided with a refill of her blood pressure medications, Vistaril for her diffuse pruritus and anxiety and follow-up at dialysis tomorrow morning and primary care physician this week for recheck of her blood pressure and symptoms. - Vital Signs Vital signs: Temp Pulse Resp BP Pulse Ox 99.2 F 108 H 22 H 215/131 H 97 01/29/18 16:39 01/29/18 16:39 01/29/18 22:02 01/29/18 22:02 01/29/18 22:02 - Laboratory Result Diagrams: 01/29/18 17:43 01/29/18 17:43 Laboratory results interpreted by me: 01/29/18 01/29/18 01/29/18 17:43 17:43 17:43 RDW 17.9 H Plt Count 129 L BUN 21 H Creatinine 6.52 H Est GFR ( Amer) 8 L Est GFR (Non-Af Amer) 7 L Glucose 74 L NT-Pro-B Natriuret Pep 248635 H - Diagnostic Test Radiology reviewed: Image reviewed, Reports reviewed Radiology results interpreted by me: CXR: Cardiomegaly, no pulmonary vascular congestion. - EKG Interpretation by Me EKG shows normal: Sinus rhythm, Intervals, QRS Complexes Voltage: Consistant with LVH Additional EKG results interpreted by me: No STEMI Discharge - Discharge Clinical Impression: Anxiety, Chronic pruritus Hypertension Qualifiers: Hypertension type: unspecified Qualified Code(s): I10 - Essential (primary) hypertension Chest pain Qualifiers: Chest pain type: unspecified Qualified Code(s): R07.9 - Chest pain, unspecified Condition: Stable Disposition: HOME, SELF-CARE Instructions: Anxiety ([facility]) Additional Instructions: You must go to dialysis tomorrow morning to help with your blood pressure. Take your blood pressure medications as prescribed and follow-up with the primary care physician and wharf tender for further evaluation and treatment. You may use Vistaril to help with any anxiety. CHEST PAIN OF UNCLEAR CAUSE: The exact cause of your chest pain isn't clear. Fortunately, there is no evidence of a dangerous medical condition. Further testing may be required to find the source of the pain. Most often, we find that this pain is coming from the chest wall -- the muscles or rib joints in the chest. But chest pain can come from the lung and lung lining, the esophagus, the heart valves or heart lining, and even the stomach or gallbladder. Rest. Eat lightly until the pain is gone. We may prescribe medicine for pain and inflammation. You should call the physician immediately if the pain radiates to the shoulder, jaw or arms; if you start to run a fever or develop a cough; or if you develop shortness of breath, or other new or alarming symptoms. NORMAL EXAM AND WORKUP: At this time, your examination and workup show no significant abnormality. No significant abnormal physical findings were noted. All laboratory, EKG, and imaging (x-ray, CT scans, ultrasound) studies that were ordered show no significant abnormality. Although your examination and all studies that were ordered showed no significant abnormal finding, there are no examinations and no studies that are 100% accurate. There is always the possibility that some abnormality could exist and not be detected with physical examination or within the limits and capabilities of laboratory and other studies. You should return or follow up as you were instructed on your visit today for further evaluation if your symptoms do not resolve. CHEST WALL PAIN: Your chest pain may be coming from the chest wall. This is often caused by straining the muscles or joints in the chest during physical activity, direct trauma, coughing, or vigorous vomiting. Persons with arthritis are especially prone to this type of pain, due to inflammation of the cartilage joints near the breast bone. Occasionally, no cause can be found. Rest from strenuous physical activity. This kind of chest pain is usually made worse by movement of the chest. Depending on the symptoms, we may prescribe medicine for pain, muscle relaxation, and antiinflammatory effects. If the pain is new, and seems to be due to muscle strain, cold packs can help. Otherwise, apply gentle warmth to the painful area for 15 minutes every hour or two. You should call contact the doctor immediately if things change. Further evaluation is needed if you develop a fever or cough, if the nature of the pain changes, or if you become short of breath. ANGINA EPISODE: Your physician has diagnosed the pain you experienced as an episode of angina. Angina occurs when a portion of the heart muscle temporarily lacks oxygen. It does not cause any permanent heart damage, but serves as a warning. Hospitalization is not necessary now. Evaluation of your cardiac condition , and medical therapy for angina will be necessary. It's important you be sure to keep all appointments and take medication exactly as prescribed. Angina is usually treated with a type of "nitrate" medication. This is available as ointment, pills, or sublingual (under the tongue) tablets. Depending on your clinical situation, other medications may be added to help control angina. These may include beta blockers or calcium blockers. If episodes of angina are occurring with increased frequency, or if chest pain lasts longer than 15 minutes or does not respond to nitroglycerin, you must seek emergency medical care immediately. FOLLOW-UP CARE: If you have been referred to a physician for follow-up care, call the physician s office for an appointment as you were instructed or within the next two days. If you experience worsening or a significant change in your symptoms, notify the physician immediately or return to the Emergency Department at any time for re-evaluation. Anxiety The physician feels that some of your health problems are being caused by anxiety. Anxiety affects your health in many ways. Anxiety alone can cause palpitations, sweats, chest pains, abdominal pains, shortness of breath, and headaches. It contributes to ulcer disease, high blood pressure, irritable bowel syndrome, and has been shown to cause flare-ups of many other diseases. Anxiety is not a simple disorder to treat. If the anxiety is due to recent life stresses, you may simply need time to "work through" the changes. If the anxiety is due to an underlying unhappiness with yourself or due to psychiatric disturbance, professional help will be needed. Your physician can refer you for further help if needed. Anti-anxiety medication is occasionally given if the stress is acute or if you are having trouble sleeping. Chronic or frequent use of these medications is not a good idea because the body becomes reliant on it, preventing you from dealing with life's normal stresses. Prescriptions: Carvedilol [Coreg 25 mg Tablet] 1 tab PO Q12 #60 tab Hydralazine HCl 50 mg PO TID 30 Days tablet Hydroxyzine Pamoate [Vistaril] 25 mg PO Q8H PRN #14 capsule PRN Reason: Forms: Elevated Blood Pressure Referrals: JOSE ALBERTO TAPIA MD [ACTIVE STAFF] - Follow up as needed NGUYỄN KLEIN MD [COMMUNITY BASED STAFF] - Follow up as needed
[2018-01-29] MEDS ORDERED: PROMETHAZINE HCL 25 MG TABLET PO ONE (18:33)
[2018-01-29] MEDS ORDERED: HYDROXYZINE PAMOATE 50 MG CAPSULE PO ONE (18:33)
[2018-01-29 18:46] LABS: ALANINE AMINOTRANSFERASE 21 U/L (9-52); ALBUMIN 4.9 g/dL (3.5-5.0); ALKALINE PHOSPHATASE 67 U/L (38-126); ANION GAP 16 (5-19); ASPARTATE AMINO TRANSFERASE 15 U/L (14-36); BILIRUBIN,DIRECT 0.4 mg/dL (0.0-0.4); BILIRUBIN,TOTAL 0.7 mg/dL (0.2-1.3); BLOOD UREA NITROGEN 21 mg/dL (7-20); CALCIUM 8.7 mg/dL (8.4-10.2); CARBON DIOXIDE 25 mmol/L (22-30); CHLORIDE 101 mmol/L (98-107); CREATINE KINASE 122 U/L (30-135); GLUCOSE 74 mg/dL (75-110); POTASSIUM 3.8 mmol/L (3.6-5.0); SODIUM 141.9 mmol/L (137-145); TOTAL PROTEIN 7.3 g/dL (6.3-8.2)
[2018-01-29 18:54] LABS: CREATINE KINASE MB 1.46 ng/mL (<4.55); TROPONIN I 0.065 ng/mL
[2018-01-29] MEDS ORDERED: HYDRALAZINE HCL 50 MG TABLET PO ONE (19:56)
[2018-01-29] MEDS ORDERED: CARVEDILOL 12.5 MG TABLET PO ONE (19:56)
[2018-01-29] MEDS ORDERED: DIPHENHYDRAMINE HCL 50 MG CAPSULE PO ONE (20:44)
[2018-01-29 22:46] VITALS: BP 215/131
--- NOTE | 2018-01-30 | EKG REPORT ---
SEVERITY:- ABNORMAL ECG - SINUS TACHYCARDIA DANAY, CONSIDER BIATRIAL ABNORMALITIES LVH WITH SECONDARY REPOLARIZATION ABNORMALITY BORDERLINE PROLONGED QT INTERVAL : Confirmed by: Lise Pitts MD 29-Jan-2018 23:59:06
--- NOTE | 2018-02-01 03:06 | EKG REPORT ---
SEVERITY:- ABNORMAL ECG - SINUS TACHYCARDIA PROBABLE LEFT ATRIAL ABNORMALITY LVH WITH SECONDARY REPOLARIZATION ABNORMALITY : Confirmed by: Lise Pitts MD 01-Feb-2018 03:04:57
== END 2018-01-29 23:42 | disposition home or self-care (01) ==
LOC: ER 16:18
DX: F41.9 Anxiety disorder, unspecified (principal); L29.9 Pruritus, unspecified; R07.9 Chest pain, unspecified; F17.200 Nicotine dependence, unspecified, uncomplicated; I50.9 Heart failure, unspecified; I13.2 Hypertensive heart and chronic kidney disease with heart failure and with stage 5 chronic kidney disease, or end stage renal disease; N18.6 End stage renal disease; Z99.2 Dependence on renal dialysis; Z88.6 Allergy status to analgesic agent; Z88.1 Allergy status to other antibiotic agents; Z91.010 Allergy to peanuts
CPT/HCPCS: 93005; 99284; 96374; 96375; 36415; 82553; 82550; 85025; 80053; 84484; 83880; 71045; 93010; A9270 ×4; J0360; J2270

== ENCOUNTER 2018-01-31 17:36 | Emergency (ER) | payer MEDICARE, MEDICAID ==
[~2018-01-31 17:36] MED LIST: ROCURONIUM BROMIDE INJ 50 MG/5 ML VIAL IV ONE
[2018-01-31] MEDS ORDERED: PROPOFOL 1,000 MG/100 ML INFUS..BTL IV ONE (17:47)
[2018-01-31] MEDS ORDERED: ETOMIDATE INJ/PF 20 MG/10 ML SDV IV ONE ×2 (17:47→18:21)
[2018-01-31] MEDS ORDERED: NITROGLYCERIN/D5W 50 MG/250 ML RTUINJ IV ONE (17:47)
--- NOTE | 2018-01-31 18:09 | ER Document Report ---
ED General - General Chief Complaint: Breathing Difficulty Stated Complaint: DIFFICULTY BREATHING Time Seen by Provider: 01/31/18 18:04 Mode of Arrival: Medic Information source: Patient, Emergency Med Personnel Notes: 43-year-old female on dialysis presents in significant respiratory distress, patient was found satting 70s, she was noted to be diaphoretic. Patient admits to history of previous intubation 2010 TRAVEL OUTSIDE OF THE [place] IN LAST 30 DAYS: No - HPI Onset: Just prior to arrival Onset/Duration: Sudden Quality of pain: No pain Severity: Severe Pain Level: Denies Associated symptoms: Shortness of breath, Weakness Exacerbated by: Denies Relieved by: Denies Similar symptoms previously: Yes Recently seen / treated by doctor: No - Related Data Allergies/Adverse Reactions: acetaminophen Allergy (Verified 01/31/18 17:37) aspirin Allergy (Verified 01/31/18 17:37) clonidine Allergy (Verified 01/31/18 17:37) codeine Allergy (Verified 01/31/18 17:37) doxycycline Allergy (Verified 01/31/18 17:37) fentanyl Allergy (Verified 01/31/18 17:37) hydrocodone Allergy (Verified 01/31/18 17:37) iodine Allergy (Verified 01/31/18 17:37) lisinopril Allergy (Verified 01/31/18 17:37) oxycodone Allergy (Verified 01/31/18 17:37) peanut Allergy (Verified 01/31/18 17:37) vancomycin Allergy (Verified 01/31/18 17:37) paper tape Allergy (Uncoded 01/31/18 17:37) silk tape Allergy (Uncoded 01/31/18 17:37) Past Medical History - Social History Smoking Status: Never Smoker Cigarette use (# per day): No Chew tobacco use (# tins/day): No Smoking Education Provided: No Family History: None - Past Medical History Cardiac Medical History: Reports: Hx Congestive Heart Failure, Hx Hypertension Pulmonary Medical History: Reports: Hx Asthma, Hx Bronchitis Renal/ Medical History: Reports: Hx End Stage Renal Disease - Dialysis Tues, Thurs, Sat. Denies: Hx Peritoneal Dialysis Past Surgical History: Reports: Hx Abdominal Surgery - hernia repair, Hx Bowel Surgery - bowel resection, Hx Section, Hx Kidney (Renal Surgery) - kidney biopsy, Hx Vascular Surgery - fistula replaced x4 Review of Systems - Review of Systems Notes: PHYSICAL EXAMINATION: GENERAL: Diaphoretic extremely ill-appearing significant respiratory distress drowsy HEAD: Atraumatic, normocephalic. EYES: Pupils equal round and reactive to light, extraocular movements intact, conjunctiva are normal. ENT: Nares patent, oropharynx clear without exudates. Moist mucous membranes. NECK: Normal range of motion, supple without lymphadenopathy LUNGS: Coarse rhonchi all throughout HEART: Regular rate and rhythm without murmurs ABDOMEN: Soft, nontender, nondistended abdomen. No guarding, no rebound. No masses appreciated. Female : deferred Musculoskeletal: Normal range of motion, no pitting or edema. No cyanosis. NEUROLOGICAL: Cranial nerves grossly intact. Drowsy PSYCH: Normal mood, normal affect. SKIN: Diaphoretic -: Yes ROS unobtainable due to patient's medical condition Physical Exam - Vital signs Vitals: Pulse Ox 91 L 01/31/18 17:35 Course - Re-evaluation Re-evalutation: 01/31/18 18:08 Patient immediately seen upon arrival to the emergency department as emergency traffic, I noted the patient was quite drowsy, the patient herself noted that she could not stay awake anymore and requested being intubated I agree with this assessment of hers as she is no longer protecting her airway. Patient intubated with no difficulty she is noted to be quite tachycardic hypertensive nitro drip will be started 01/31/18 19:[address] Cox, requests transfer due to need for dialysis. given fever , resp faiure probablepneumonia unable to cta due ot contrast allergy 01/31/18 19:52 Dr Emigdio gee accepts - Vital Signs Vital signs: Temp Pulse Resp BP Pulse Ox 12 203/145 H 94 01/31/18 19:19 01/31/18 19:19 01/31/18 19:19 - Laboratory Result Diagrams: 01/31/18 17:41 01/31/18 17:41 Laboratory results interpreted by me: 01/31/18 01/31/18 01/31/18 17:41 17:41 17:41 RDW 18.0 H Plt Count 146 L VBG pH Sodium 147.2 H Anion Gap 21 H BUN 38 H Creatinine 8.20 H Est GFR ( Amer) 6 L Est GFR (Non-Af Amer) 5 L Lactic Acid 2.3 H Calcium 8.3 L Direct Bilirubin 0.6 H AST 78 H Creatine Kinase 176 H NT-Pro-B Natriuret Pep Albumin 5.2 H Urine Protein Ur Leukocyte Esterase 01/31/18 01/31/18 01/31/18 17:41 17:41 18:10 RDW Plt Count VBG pH 7.20 L Sodium Anion Gap BUN Creatinine Est GFR ( Amer) Est GFR (Non-Af Amer) Lactic Acid Calcium Direct Bilirubin AST Creatine Kinase NT-Pro-B Natriuret Pep 938201 H Albumin Urine Protein >=500 H Ur Leukocyte Esterase SMALL H Discharge - Discharge Clinical Impression: Respiratory failure Qualifiers: Chronicity: acute Respiratory failure complication: hypoxia Qualified Code(s): J96.01 - Acute respiratory failure with hypoxia Pneumonia Qualifiers: Pneumonia type: due to unspecified organism Laterality: unspecified laterality Lung location: unspecified part of lung Qualified Code(s): J18.9 - Pneumonia, unspecified organism Condition: Critical Disposition: [facility]
[2018-01-31 18:20] LABS: INTERNATIONAL RATION (INR) 1.06; PROTHROMBIN TIME 14.3 SEC (11.4-15.4)
[2018-01-31] MEDS ORDERED: ROCURONIUM BROMIDE INJ 50 MG/5 ML VIAL IV ONE ×2 (18:21→18:48)
[2018-01-31] MEDS ORDERED: NITROGLYCERIN/D5W 50 MG/250 ML RTUINJ IV PRN (18:21)
[2018-01-31] MEDS ORDERED: PROPOFOL 1,000 MG/100 ML INFUS..BTL IV PRN (18:21)
[2018-01-31 18:24] LABS: VENOUS BLOOD BASE EXCESS -7.5 mmol/L; VENOUS BLOOD HCO3 20.9 mmol/L (20-32); VENOUS BLOOD PCO2 54.7 mmHg (35-63); VENOUS BLOOD PH 7.2 (7.30-7.42)
[2018-01-31 18:28] LABS: ABSOLUTE BASOPHILS # (AUTO) 0.1 10^3/uL (0.0-0.2); ABSOLUTE EOSINOPHILS # (AUTO) 0.4 10^3/uL (0.0-0.6); ABSOLUTE LYMPHOCYTES (AUTO) 4.1 10^3/uL (0.5-4.7); ABSOLUTE MONOCYTES (AUTO) 0.6 10^3/uL (0.1-1.4); ABSOLUTE NEUT (AUTO) 4.5 10^3/uL (1.7-8.2); EOSINOPHILS % (AUTO) 4.2 % (0-6); HEMATOCRIT 40.2 % (36.0-47.0); HEMOGLOBIN 13.3 g/dL (12.0-15.5); LYMPHOCYTES % (AUTO) 42.6 % (13-45); MEAN CORPUSCULAR HGB CONC 33.1 g/dL (32.0-36.0); MEAN CORPUSCULAR VOLUME 93 fl (80-97); RED BLOOD COUNT 4.31 10^6/uL (3.72-5.28); SEGMENTED NEUTROPHILS % (AUTO) 46.2 % (42-78); TOTAL CELLS COUNTED % (AUTO) 100 %; WHITE BLOOD COUNT 9.7 10^3/uL (4.0-10.5)
[2018-01-31 18:31] LABS: ALANINE AMINOTRANSFERASE 51 U/L (9-52); ALBUMIN 5.2 g/dL (3.5-5.0); ALKALINE PHOSPHATASE 72 U/L (38-126); ASPARTATE AMINO TRANSFERASE 78 U/L (14-36); BILIRUBIN,DIRECT 0.6 mg/dL (0.0-0.4); BILIRUBIN,TOTAL 0.9 mg/dL (0.2-1.3); BLOOD UREA NITROGEN 38 mg/dL (7-20); CALCIUM 8.3 mg/dL (8.4-10.2); CREATINE KINASE 176 U/L (30-135); GLUCOSE 106 mg/dL (75-110); POTASSIUM 4.1 mmol/L (3.6-5.0); TOTAL PROTEIN 8.1 g/dL (6.3-8.2)
[2018-01-31 18:36] LABS: CARBON DIOXIDE 22 mmol/L (22-30); CHLORIDE 104 mmol/L (98-107); SODIUM 147.2 mmol/L (137-145)
[2018-01-31 18:37] LABS: AMORPHOUS SEDIMENT,URINE TRACE /HPF; APPEARANCE,URINE SLIGHTLY-CLOUDY; BILIRUBIN,URINE NEGATIVE (NEGATIVE); COLOR,URINE YELLOW; GLUCOSE, URINE NEGATIVE (NEGATIVE); KETONES,URINE NEGATIVE (NEGATIVE); LEUKOCYTE ESTERASE,URINE SMALL (NEGATIVE); NITRITE,URINE NEGATIVE (NEGATIVE); PROTEIN,URINE >=500 mg/dL (NEGATIVE); URINE SPECIFIC GRAVITY 1.014; UROBILINOGEN,URINE NEGATIVE mg/dL (<2.0)
[2018-01-31 18:37] LABS: ANION GAP 21 (5-19)
[2018-01-31 18:39] LABS: PLATELET COUNT 146 10^3/uL (150-450)
[2018-01-31 18:43] LABS: CREATINE KINASE MB 1.98 ng/mL (<4.55)
--- NOTE | 2018-01-31 18:43 | RADIOLOGY REPORT (SQ) ---
EXAM DESCRIPTION: CHEST SINGLE VIEW COMPLETED DATE/TIME: 01/31/2018 6:27 pm REASON FOR STUDY: resp failure COMPARISON: 01/29/2018 EXAM PARAMETERS: NUMBER OF VIEWS: One view. TECHNIQUE: Single frontal radiographic view of the chest acquired. RADIATION DOSE: NA LIMITATIONS: None. FINDINGS: LUNGS AND PLEURA: Increased interstitial prominence. No consolidation or significant effu brittany. No pneumothorax. MEDIASTINUM AND HILAR STRUCTURES: Stable. HEART AND VASCULAR STRUCTURES: Similar cardiomegaly. Mild increased vascularity. BONES: No acute findings. HARDWARE: Endotracheal tube tip is approximately 3.7 cm above the level of the karla. Nasogastric c atheter is present with tip overlying the body of the stomach. OTHER: No other significant finding. IMPRESSION: Endotracheal tube tip is approximately 3.7 cm above the level of the karla. Nasogastri c catheter is present with tip overlying the body of the stomach.Increased interstitial prominence. No consolidation or significant effusion. No pneumothorax. TECHNICAL DOCUMENTATION: JOB ID: [id number] [place]-[id number] 2010 [employer]- All Rights Reserved Reading location - IP/workstation name: [email or web address]
[2018-01-31] MEDS ORDERED: CEFTRIAXONE 1 GM/D5W RTU 1 GM/50 ML RTUPB IV ONE (18:52)
[2018-01-31] MEDS ORDERED: CEFTRIAXONE INJ 1000 MG VIAL IV ONE (19:01)
[2018-01-31 19:02] LABS: TROPONIN I 0.071 ng/mL
[2018-01-31] MEDS ORDERED: NORMAL SALINE 1000 ML 1,000 ML IV ONE (19:02)
--- NOTE | 2018-01-31 23:44 | ER Document Report ---
Doctor's Note Notes: 01/31/18 23:43 [facility] transport is here for the patient. She remains on a ventilator. Her vital signs are stable. She is stable for transfer.
[2018-01-31 23:48] VITALS: BP 194/155
== END 2018-01-31 23:42 | disposition short-term general hospital (02) ==
LOC: ER 17:36
DX: J96.11 Chronic respiratory failure with hypoxia (principal); J18.9 Pneumonia, unspecified organism; I12.0 Hypertensive chronic kidney disease with stage 5 chronic kidney disease or end stage renal disease; N18.6 End stage renal disease; Z99.2 Dependence on renal dialysis; R61 Generalized hyperhidrosis; R06.02 Shortness of breath; R53.1 Weakness; R40.0 Somnolence; R00.0 Tachycardia, unspecified; Z88.6 Allergy status to analgesic agent; Z88.8 Allergy status to other drugs, medicaments and biological substances; Z88.5 Allergy status to narcotic agent; Z88.1 Allergy status to other antibiotic agents; Z91.010 Allergy to peanuts; Z91.048 Other nonmedicinal substance allergy status; Z91.041 Radiographic dye allergy status
CPT/HCPCS: 31500; 99285; 51702; 96365; 96366; 96367; 36415; 87040; 87086; 82553; 82550; 85025; 85610; 80053; 81001; 84484; 82803; 83605; 83880; 71045; 94660; J3490 ×2; J2704; J0696; J7030